=== PATIENT | female | born 2005 | race Two or more races ===

== ENCOUNTER → 2025-05-02 | Emergency (ER) | payer MEDICAID, OTHER ==
[~2025-05-02] VITALS: Ht 157.5 cm; Wt 65.0 kg
[2025-05-02 18:10] VITALS: BP 135/86; PULSE 111; RESP 16; TEMP 98.1; O2SAT 100
== END | disposition left against medical advice (07) ==
LOC: ER 18:12
DX: R10.2 Pelvic and perineal pain (principal); Z53.21 Procedure and treatment not carried out due to patient leaving prior to being seen by health care provider